=== PATIENT | female | born 1930 | race Two or more races ===

== ENCOUNTER → 2017-06-04 | Outpatient (CLI) | payer MEDICARE, OTHER ==
[2017-06-04 12:49] LABS: COLOR,URINE YELLOW
[2017-06-04 12:50] LABS: BACTERIA,URINE 0 /HPF (0-FEW); BILIRUBIN,URINE NEG (NEG); CLARITY,URINE CLOUDY; GLUCOSE,URINE NEG (NEG); NITRITE,URINE NEG (NEG); RBC,URINE 0 /HPF (0-2); SQUAMOUS EPITHELIAL CELL,UR FEW /LPF; UROBILINOGEN,URINE 0.2 mg/dL (0.2 mg/dL); WBC,URINE OCC /HPF (0-4)
[2017-06-04 12:51] LABS: HYALINE CASTS, URINE FEW /HPF
== END | disposition home or self-care (01) ==
LOC: SPEC 12:30
PROVIDERS: ATTEND Internal Medicine
DX: R32 Unspecified urinary incontinence (principal)
CPT/HCPCS: 81001

== ENCOUNTER → 2017-06-06 | Outpatient (CLI) | payer MEDICARE, OTHER ==
[2017-06-06 10:05] LABS: CALCIUM 9.6 mg/dL (8.5-10.1); CREATININE 1.1 mg/dL (0.6-1.0); POTASSIUM 5.1 mmol/L (3.5-5.1)
[2017-06-06 10:06] LABS: GFR 46.9
== END | disposition home or self-care (01) ==
LOC: SPEC 09:40
PROVIDERS: ATTEND Internal Medicine
DX: E87.5 Hyperkalemia (principal)
CPT/HCPCS: 36415; 80048

== ENCOUNTER 2017-06-13 10:05 | Inpatient (IN) | payer MEDICARE, OTHER ==
[2017-06-13] VITALS (10 sets, daily range): BP systolic 98–142; BP diastolic 40–73
[~2017-06-13] VITALS: Ht 165.1 cm; Wt 98.9 kg
--- NOTE | 2017-06-13 10:27 | PHYS DOC ---
Adult General Chief Complaint Chief Complaint: LOWER EXTREMITY EDEMA HPI HPI Patient is a 87 year old F who presents with increased swelling to the lower extremity. Patient has history of CHF and water retention and her Lasix was recently upped however the patient does not like to increase dosage because it makes her go to the bathroom too much. Therefore the patient has not been taking her Lasix as prescribed and has been retaining more fluid. The group home called EMS for further evaluation and management. The facility is also seeing her heart rate decreased which is in the 40s. In the emergency room the patient has no complaints. Patient denies any shortness of breath. Patient does note that her legs are swollen more than normal. Patient denies any chest pain. Patient denies any nausea/vomiting/diarrhea. Patient has no other complaints. Review of Systems Review of Systems GEN: Denies fevers, chills, sweats HEENT: Denies blurred vision, sore throat CV: Denies chest pain RESP: Denies shortness of air, cough GI: Denies n/v/d NEURO: Denies confusion, dizziness MSK: Lower extremity swelling All other systems were reviewed and found to be within normal limits, except as documented in this note. Physical Exam Physical Exam GEN.: No apparent distress. Alert and oriented. HEENT: Head is normocephalic, atraumatic NECK: Supple. LUNGS: Decreased breath sounds at the bases bilaterally HEART: Bradycardia, irregular irregular, S1, S2 present. Peripheral pulses intact ABDOMEN: Soft, nontender. Positive bowel sounds. EXTREMITIES: Without any cyanosis. +2 pitting edema to lower extremity bilaterally NEUROLOGIC: Normal speech, normal tone PSYCHIATRIC: Normal affect, normal mood. SKIN: No ulcerations Current Patient Data Vital Signs Laboratory Tests Test 06/13/17 10:31 White Blood Count 4.9 x10^3/uL Red Blood Count 3.86 x10^6/uL Hemoglobin 9.6 g/dL Hematocrit 30.9 % Mean Corpuscular Volume 80 fL Mean Corpuscular Hemoglobin 25 pg Mean Corpuscular Hemoglobin Concent 31 g/dL Red Cell Distribution Width 16.8 % Platelet Count 213 x10^3/uL Neutrophils (%) (Auto) 66 % Lymphocytes (%) (Auto) 16 % Monocytes (%) (Auto) 11 % Eosinophils (%) (Auto) 5 % Basophils (%) (Auto) 1 % Neutrophils # (Auto) 3.3 x10^3uL Lymphocytes # (Auto) 0.8 x10^3/uL Monocytes # (Auto) 0.5 x10^3/uL Eosinophils # (Auto) 0.3 x10^3/uL Basophils # (Auto) 0.0 x10^3/uL Sodium Level 141 mmol/L Potassium Level 5.1 mmol/L Chloride Level 108 mmol/L Carbon Dioxide Level 30 mmol/L Anion Gap 3 Blood Urea Nitrogen 52 mg/dL Creatinine 1.2 mg/dL Estimated GFR (Cockcroft-Gault) 42.4 BUN/Creatinine Ratio 43 Glucose Level 116 mg/dL Calcium Level 9.8 mg/dL Total Bilirubin 0.3 mg/dL Aspartate Amino Transf (AST/SGOT) 19 U/L Alanine Aminotransferase (ALT/SGPT) 19 U/L Alkaline Phosphatase 112 U/L Troponin I Quantitative 0.063 ng/mL PA-Dun-V-Type Natriuretic Peptide 2438 pg/mL Total Protein 6.8 g/dL Albumin 2.7 g/dL Albumin/Globulin Ratio 0.7 Current Medications Medications (Trade) Dose Ordered Sig/Kelechi Route PRN Reason Start Time Stop Time Status Last Admin Dose Admin Aspirin (Children'S Aspirin) 81 mg STK-MED ONCE .ROUTE 06/13/17 11:07 06/13/17 11:08 DC Aspirin (Children'S Aspirin) 324 mg 1X ONCE PO 06/13/17 11:30 06/13/17 11:31 DC Ondansetron HCl (Zofran) 4 mg PRN Q4HRS PRN IV NAUSEA/VOMITING 06/13/17 11:30 06/14/17 11:29 Morphine Sulfate (Morphine 2mg Syringe) 2 mg PRN Q2HR PRN IV PAIN 06/13/17 11:30 06/14/17 11:29 Acetaminophen (Tylenol) 650 mg PRN Q4HRS PRN PO FEVER 06/13/17 11:30 06/14/17 11:29 EKG EKG 1053: EKG shows an A. fib with a heart rate of 41 no STEMI[] Radiology/Procedures Radiology/Procedures Chest x-ray shows vascular congestion with a small bilateral pleural effusions[] Course & Med Decision Making Course & Med Decision Making Pertinent Labs and Imaging studies reviewed. (See chart for details) ED course: Patient was seen and examined emergency room cardiac workup was ordered along with a BNP 1110: Updated patient and family at bedside on lab results and plan to admit to the hospital for further evaluation and workup. 1120: Discussed CC/HP/PMH with Dr. Agustin and recommends admit [] MDM: After reviewing the chart, CC/HPI/PMH, physical exam, [lab results], [ radiological results], I believe the patient is having an acute CHF exacerbation along with new-onset of A. fib with bradycardia. Patient has elevated troponin however I do not believe the patient having a STEMI and believe the elevated troponin is probably related to the CHF exacerbation and A. fib. Patient is a DNR. Patient will be given 80 of Lasix in the emergency room and transferred to the ICU. Critical care time was 35 minutes exclusive of procedures.[] Dragon Disclaimer Dragon Disclaimer This electronic medical record was generated, in whole or in part, using a voice recognition dictation system. Departure Departure: Referrals: RAMO MARES MD (PCP) VIVIAN FERNANDEZ DO Jun 13, 2017 10:27
[2017-06-13 10:42] LABS: BASO % 1 % (0-3); EOS # 0.3 x10^3/uL (0.0-0.7); EOS % 5 % (0-3); HEMATOCRIT 30.9 % (36.0-47.0); HEMOGLOBIN 9.6 g/dL (12.0-15.5); LYMPH # 0.8 x10^3/uL (1.0-4.8); LYMPH % 16 % (24-48); MEAN CORPUSCULAR HEMOGLOBIN 25 pg (25-35); MEAN CORPUSCULAR HGB CONC 31 g/dL (31-37); MEAN CORPUSCULAR VOLUME 80 fL (79-100); MONO # 0.5 x10^3/uL (0.0-1.1); MONO % 11 % (0-9); NEUT # 3.3 x10^3uL (1.8-7.7); NEUT % 66 % (31-73); PLATELET COUNT 213 x10^3/uL (140-400); RED BLOOD COUNT 3.86 x10^6/uL (3.50-5.40); RED CELL DISTRIBUTION WIDTH 16.8 % (11.5-14.5); WHITE BLOOD COUNT 4.9 x10^3/uL (4.0-11.0)
--- NOTE | 2017-06-13 10:49 | RAD ---
Indication: Short of air. Technique: AP upright portable chest radiograph was obtained. Comparison is from August 25, 2005. Findings: The heart is upper limits of normal in size. Pulmonary vasculature is mildly cephalized. There is minimal left basilar atelectasis and/or infiltrate. There may be a small left and minimal right pleural effusion. There are advanced degenerative changes in the left shoulder. There is dextrocurvature in the thoracic spine. Leads overlie the patient. Impression: 1. Vascular congestion suspected. 2. Small left and minimal right pleural effusion. 3. Minimal left basilar atelectasis and/ or infiltrate.
--- NOTE | 2017-06-13 10:59 | EKG ---
[address] [address] Test Date: 2017-06-13 Test Time: 10:50:58 Pat Name: SHON SYED Department: Room: Gender: F [employer]iding Instructor: LISA : [id number] Requested By: VIVIAN FERNANDEZ Order Number: [id number] Reading MD: Hernan Chacon MD Measurements Intervals [place] Rate: 41 P: NE: QRS: 27 QRSD: 136 T: 0 QT: 434 QTc: 362 Interpretive Statements [facility] Electronically Signed On 06-13-2017 11:01:12 [employer]PTWIST SPINNER by Hernan Chacon MD
[2017-06-13 11:03] LABS: ALBUMIN 2.7 g/dL (3.4-5.0); ALBUMIN/GLOBULIN RATIO 0.7 (1.0-1.7); CALCIUM 9.8 mg/dL (8.5-10.1); CREATININE 1.2 mg/dL (0.6-1.0); GFR 42.4; POTASSIUM 5.1 mmol/L (3.5-5.1); TOTAL BILIRUBIN 0.3 mg/dL (0.2-1.0); TOTAL PROTEIN 6.8 g/dL (6.4-8.2)
[2017-06-13] MEDS ORDERED: ASPIRIN 81 MG TAB.CHEW ONE (11:07)
[2017-06-13] MEDS ORDERED: MORPHINE SULFATE 2 MG/ML DISP.SYRIN. IV PRN (11:30)
[2017-06-13] MEDS ORDERED: ONDANSETRON PF 4 MG/2 ML VIAL. IV PRN (11:30)
[2017-06-13] MEDS ORDERED: ACETAMINOPHEN 325 MG TABLET PO PRN (11:30)
[2017-06-13] MEDS ORDERED: ASPIRIN 81 MG TAB.CHEW PO ONE (11:30)
[2017-06-13] MEDS ORDERED: FUROSEMIDE 40 MG/4 ML VIAL IVP ONE (12:10)
[2017-06-13 12:31] LABS: BILIRUBIN,URINE NEG (NEG); CLARITY,URINE CLOUDY; COLOR,URINE YELLOW; GLUCOSE,URINE NEG (NEG); NITRITE,URINE POS (NEG); UROBILINOGEN,URINE 0.2 mg/dL (0.2 mg/dL)
[2017-06-13 12:32] LABS: BACTERIA,URINE MANY /HPF (0-FEW); GRANULAR CASTS,URINE OCC /HPF; HYALINE CASTS, URINE MOD /HPF; SQUAMOUS EPITHELIAL CELL,UR FEW /LPF
[2017-06-13] MEDS ORDERED: FUROSEMIDE 40 MG TABLET PO SCH (14:00)
[2017-06-13] MEDS: amLODIPine BESYLATE 10 MG TABLET PO SCH (14:00)
--- NOTE | 2017-06-13 14:39 | CONS ---
DATE OF CONSULTATION: 06/13/2017 REASON FOR CONSULTATION: Bradycardia and heart failure. HISTORY OF PRESENT ILLNESS: The patient's history is fairly limited due to some somnolence, but it appears that based on chart review and her presentation, she was stent to the ER due to a slow heart rate and worsening lower extremity edema and upper extremity edema. She currently denies any symptoms, but feels fairly sleepy. Upon arrival to the ER, she was noted to have vascular congestion and an elevated BNP and therefore she was diuresed with Lasix 80 mg IV push. She has been admitted to the hospital for further evaluation as her EKG revealed atrial fibrillation with slow ventricular response as well. This history of atrial fibrillation is unknown. PAST MEDICAL HISTORY: 1. Hypertension. 2. Presumable diastolic heart failure with bilateral lower extremity edema. 3. Chronic debility. FAMILY HISTORY: Noncontributory. 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 ALLERGIES: CODEINE. MEDICATIONS: Cardiovascular medications at home: 1. Carvedilol 3.125 mg b.i.d. 2. Norvasc 5 mg daily. REVIEW OF SYSTEMS: Negative for 10 out of 14 systems reviewed, unless otherwise mentioned above in HPI. PHYSICAL EXAMINATION: VITAL SIGNS: Afebrile, 52, 15, 142/72, 100% on 2 liters nasal canula. GENERAL: She is alert and oriented to person and place, but not to time. HEAD AND NECK: Unremarkable. CARDIAC: Irregularly irregular and bradycardic with 4/6 systolic murmurs at the tricuspid and aortic regions. LUNGS: Decreased breath sounds bilaterally. ABDOMEN: Obese with mild pitting edema. NEUROLOGIC: No focal deficits, but she is frail and debilitated. EXTREMITIES: Bilateral 2+ pitting edema of the upper and lower extremities. She has chronic venous stasis changes and class C6 wounds. MUSCULOSKELETAL: No obvious trauma. DIAGNOSTIC STUDIES: Hemoglobin 9.6, platelets 213, creatinine 1.2, potassium 5.1, troponin 0.063. BNP 2438. Urinalysis is notable for positive nitrites and 11-20 wbc's. Chest x-ray reveals bilateral vascular congestion. EKG demonstrates atrial fibrillation with slow ventricular response. IMPRESSION: 1. Atrial fibrillation with slow ventricular response, duration unknown. 2. Presumed diastolic heart failure, echo pending, acute on chronic. 3. Possible urinary tract infection. 4. Anemia of chronic disease. 5. Hypertension. RECOMMENDATIONS: 1. Initiate amlodipine 10 mg daily for her blood pressure. 2. Continue Lasix 40 mg IV daily starting tomorrow. The patient already received 80 mg IV Lasix today. Monitor urine output and strict I's and O's and low salt diet. 3. Obtain echocardiogram. The patient appears to be DNR and we will continue conservative measures at this time. No acute indication for pacemaker. Supportive care. Thank you for this consultation. EKATERINA WEEMS MD DR: ELLYN/lucy JOB#: [id number] / [id number]
[2017-06-13] MEDS ORDERED: MULT-658 PO (16:30)
[2017-06-13] MEDS ORDERED: PSYL3.4P PO (16:30)
[2017-06-13] MEDS ORDERED: CALC500T PO (16:30)
[2017-06-13] MEDS ORDERED: MENT1ADH39 TP (16:30)
[2017-06-13] MEDS ORDERED: ERGO500027 PO (16:40)
[2017-06-13] MEDS ORDERED: CHOL500016 PO (16:40)
[2017-06-13] MEDS ORDERED: FURO-68 PO (16:40)
[2017-06-13] MEDS ORDERED: ACET500T68 PO (16:40)
[2017-06-13] MEDS ORDERED: CARV3.12 PO (16:40)
[2017-06-13] MEDS ORDERED: TRAM50TA PO (16:40)
[2017-06-13] MEDS ORDERED: ASPI-630 PO (16:40)
[2017-06-13] MEDS ORDERED: DOCU-109 PO (16:40)
[2017-06-13] MEDS ORDERED: GLUC1CAP39 PO (16:40)
[2017-06-13] MEDS ORDERED: TOLT4CAP PO (16:40)
[2017-06-13] MEDS ORDERED: TRIA15CR50 TP (16:40)
[2017-06-13] MEDS ORDERED: RANI150T6 PO (16:40)
[2017-06-13] MEDS ORDERED: AMLO5TAB2 PO (16:40)
[2017-06-13] MEDS ORDERED: GUAI600T47 PO (16:49)
[2017-06-13] MEDS ORDERED: SENN-79 PO (16:49)
[2017-06-13] MEDS ORDERED: CLOT15CR3 TP (16:49)
[2017-06-13] MEDS ORDERED: ERGOCALCIFEROL 50000 UNIT PO SCH (17:00)
[2017-06-13] MEDS ORDERED: TRIAMCINOLONE ACETONIDE 0.5% TOPICAL CREAM 15GM TUBE. TP PRN (17:00)
[2017-06-13] MEDS ORDERED: METHYL SALICYLATE/MENTHOL TOPICAL OINTMENT 29GM TUBE. TP PRN (17:15)
--- NOTE | 2017-06-13 18:15 | HP ---
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 The senior care also noticed some heart rate in the 40s. The patient herself is not sure why she had to be admitted. PAST MEDICAL HISTORY: Lower extremity ulcers, chronic venous insufficiency, pruritus, lymphedema, long-term use of aspirin, osteoarthritis, fall risk, hypertension, dysphagia, and has a history of esophageal obstruction. MEDICATIONS: Reviewed and are available on the MAR. REVIEW OF SYSTEMS: The patient states I am cold, otherwise no specific complaints. OBJECTIVE: VITAL SIGNS: Blood pressure 142/72, respirations 15, pulse 52, pulse ox 100% on 2 liters. Height 61 inches, weight 240.3 pounds. HEENT: The patient's color is pale. Her tongue is slightly dry. NECK: Supple. LUNGS: With a few crackles in the bases. CARDIOVASCULAR: Rate is slow rhythm, irregular rhythm. ABDOMEN: Soft, swollen. EXTREMITIES: With deformed feet, barely palpable pulses, skin changes of venous insufficiency, and some edema. Remainder of her extremities, she has massive anasarca of the upper extremities, abdomen, and upper legs. LABORATORY DATA: Hemoglobin 9.6, hematocrit 30.9. Chemistry: BUN is 52, creatinine is 1.2. Her troponin is slightly elevated at 0.063. BNP 2438. Albumin 2.7. ASSESSMENT: 1. Massive anasarca. 2. Atrial fibrillation with slow ventricular response. 3. Normochromic normocytic anemia. 4. History of hypertension. 5. Chronic venous insufficiency. 6. Elevated troponin. 7. Elevated BNP with vascular congestion. 8. Congestive heart failure. PLAN: IV Lasix, strict I and O, daily weight, echocardiogram. MILAN REED DO DR: ASAD/lucy JOB#: [id number] / [id number]
[2017-06-13] MEDS: CALCIUM CARBONATE 500 MG TABLET PO SCH (21:52)
[2017-06-13] MEDS: OXYBUTYNIN CHLORIDE 5 MG TABLET PO SCH (21:52)
[2017-06-13] MEDS: SENNOSIDES 8.6 MG TABLET PO SCH (21:52)
[2017-06-13] MEDS: FAMOTIDINE 20 MG TABLET PO SCH (21:53)
[2017-06-13] MEDS: DOCUSATE SODIUM 100 MG CAPSULE PO SCH (21:53)
[2017-06-13] MEDS: CLOTRIMAZOLE/BETAMETH 1%-0.05% TOPICAL CREAM 15GM TUBE. TP SCH (21:53)
[2017-06-13] MEDS: ACETAMINOPHEN 500 MG TABLET PO SCH (21:53)
[2017-06-13] MEDS: GLUCOSAMINE/CHOND 500/400MG CAPSULE PO SCH (21:55)
[2017-06-14] VITALS (15 sets, daily range): BP systolic 105–159; BP diastolic 47–81
[2017-06-14] MEDS: FUROSEMIDE 40 MG/4 ML VIAL IVP SCH (06:04)
[2017-06-14 06:19] LABS: BASO % 1 % (0-3); EOS # 0.4 x10^3/uL (0.0-0.7); EOS % 7 % (0-3); HEMATOCRIT 30.9 % (36.0-47.0); HEMOGLOBIN 9.6 g/dL (12.0-15.5); LYMPH # 0.9 x10^3/uL (1.0-4.8); LYMPH % 16 % (24-48); MEAN CORPUSCULAR HEMOGLOBIN 25 pg (25-35); MEAN CORPUSCULAR HGB CONC 31 g/dL (31-37); MEAN CORPUSCULAR VOLUME 80 fL (79-100); MONO # 0.7 x10^3/uL (0.0-1.1); MONO % 12 % (0-9); NEUT # 3.5 x10^3uL (1.8-7.7); NEUT % 64 % (31-73); PLATELET COUNT 200 x10^3/uL (140-400); RED BLOOD COUNT 3.86 x10^6/uL (3.50-5.40); RED CELL DISTRIBUTION WIDTH 16.4 % (11.5-14.5); WHITE BLOOD COUNT 5.4 x10^3/uL (4.0-11.0)
[2017-06-14 06:25] LABS: ALBUMIN 2.6 g/dL (3.4-5.0); ALBUMIN/GLOBULIN RATIO 0.7 (1.0-1.7); CALCIUM 9.6 mg/dL (8.5-10.1); GFR 52.3; MAGNESIUM 1.7 mg/dL (1.8-2.4); POTASSIUM 4.6 mmol/L (3.5-5.1); TOTAL BILIRUBIN 0.4 mg/dL (0.2-1.0); TOTAL PROTEIN 6.2 g/dL (6.4-8.2)
[2017-06-14] MEDS: MULTIVITAMIN I-VITE TABLET. PO SCH (08:28)
[2017-06-14] MEDS: GLUCOSAMINE/CHOND 500/400MG CAPSULE PO SCH ×2 (08:28→21:47)
[2017-06-14] MEDS: ACETAMINOPHEN 500 MG TABLET PO SCH ×3 (08:28→21:47)
[2017-06-14] MEDS: MAGNESIUM OXIDE 400 MG TABLET PO SCH (08:28)
[2017-06-14] MEDS: CALCIUM CARBONATE 500 MG TABLET PO SCH ×3 (08:28→21:47)
[2017-06-14] MEDS: OXYBUTYNIN CHLORIDE 5 MG TABLET PO SCH ×3 (08:28→21:46)
[2017-06-14] MEDS: amLODIPine BESYLATE 10 MG TABLET PO SCH (08:29)
[2017-06-14] MEDS ORDERED: PSYLLIUM SEED (WITH SUGAR) PACKET. PO PRN (09:00)
--- NOTE | 2017-06-14 09:34 | PDOC ---
PROGRESS NOTES Assessment 1. Atrial fibrillation with slow ventricular response, duration unknown. beta blockers discontinued. Rate improving. [id number] =4. Would warrant anticoagulation for stroke prophylaxis. 2. heart failure, acute on chronic. Echo pending. good output with lasix. 3. Hypertension. - controlled with amlodipine. 4. UTI/cellulitis - mgmt per PCP Problems: Subjective no chest pain, mild dyspnea, no palpitations Objective Vital Signs Date Time Temp Pulse Resp B/P (MAP) Pulse Ox O2 Delivery O2 Flow Rate FiO2 06/14/17 09:00 61 20 108/51 (70) 96 Nasal Cannula 2.0 06/14/17 06:50 98.1 Intake and Output 06/14/17 07:00 Intake Total 314 ml Output Total 3100 ml Balance -2786 ml Intake Oral 314 ml Output Urine Total 3100 ml Abdomen: Normal bowel sounds, Soft Heart: Other (irregular rate and rhythm, + murmur 3/6) Extremities: Other (+edema, bilateral lower extremity erythema) General: Alert, Oriented X3, Cooperative Lungs: Other (basilar crackles) Neuro: Normal speech Psych/Mental Status: Mental status NL, Mood NL Review of Relevant I have reviewed the following items janet (where applicable) has been applied. Labs Laboratory Tests Test 06/13/17 10:31 06/13/17 12:00 06/13/17 13:30 06/13/17 17:15 White Blood Count 4.9 x10^3/uL (4.0-11.0) Red Blood Count 3.86 x10^6/uL (3.50-5.40) Hemoglobin 9.6 g/dL (12.0-15.5) Hematocrit 30.9 % (36.0-47.0) Mean Corpuscular Volume 80 fL (79-100) Mean Corpuscular Hemoglobin 25 pg (25-35) Mean Corpuscular Hemoglobin Concent 31 g/dL (31-37) Red Cell Distribution Width 16.8 % (11.5-14.5) Platelet Count 213 x10^3/uL (140-400) Neutrophils (%) (Auto) 66 % (31-73) Lymphocytes (%) (Auto) 16 % (24-48) Monocytes (%) (Auto) 11 % (0-9) Eosinophils (%) (Auto) 5 % (0-3) Basophils (%) (Auto) 1 % (0-3) Neutrophils # (Auto) 3.3 x10^3uL (1.8-7.7) Lymphocytes # (Auto) 0.8 x10^3/uL (1.0-4.8) Monocytes # (Auto) 0.5 x10^3/uL (0.0-1.1) Eosinophils # (Auto) 0.3 x10^3/uL (0.0-0.7) Basophils # (Auto) 0.0 x10^3/uL (0.0-0.2) Sodium Level 141 mmol/L (136-145) Potassium Level 5.1 mmol/L (3.5-5.1) Chloride Level 108 mmol/L (98-107) Carbon Dioxide Level 30 mmol/L (21-32) Anion Gap 3 (6-14) Blood Urea Nitrogen 52 mg/dL (7-20) Creatinine 1.2 mg/dL (0.6-1.0) Estimated GFR (Cockcroft-Gault) 42.4 BUN/Creatinine Ratio 43 (6-20) Glucose Level 116 mg/dL (70-99) Calcium Level 9.8 mg/dL (8.5-10.1) Total Bilirubin 0.3 mg/dL (0.2-1.0) Aspartate Amino Transf (AST/SGOT) 19 U/L (15-37) Alanine Aminotransferase (ALT/SGPT) 19 U/L (14-59) Alkaline Phosphatase 112 U/L (46-116) Troponin I Quantitative 0.063 ng/mL (0-0.055) 0.067 ng/mL (0-0.055) WH-Vyw-E-Type Natriuretic Peptide 2438 pg/mL (0-449) Total Protein 6.8 g/dL (6.4-8.2) Albumin 2.7 g/dL (3.4-5.0) Albumin/Globulin Ratio 0.7 (1.0-1.7) Urine Collection Type U cath Urine Color Yellow Urine Clarity Cloudy Urine pH 5.0 Urine Specific [place] 1.020 Urine Protein 30 mg/dl (NEG-TRACE) Urine Glucose (UA) Neg mg/dL (NEG) Urine Ketones (Stick) Neg mg/dL (NEG) Urine Blood Small (NEG) Urine Nitrite Pos (NEG) Urine Bilirubin Neg (NEG) Urine Urobilinogen Dipstick 0.2 mg/dL (0.2 mg/dL) Urine Leukocyte Esterase Neg (NEG) Urine RBC 3-5 /HPF (0-2) Urine WBC 11-20 /HPF (0-4) Urine Squamous Epithelial Cells Few /LPF Urine Bacteria Many /HPF (0-FEW) Urine Hyaline Casts Mod /HPF Urine Granular Casts Occ /HPF Urine Mucus Slight /LPF Nasal Screen MRSA (PCR) Positive (Negative) Test 06/13/17 22:50 06/14/17 06:01 Troponin I Quantitative 0.065 ng/mL (0-0.055) White Blood Count 5.4 x10^3/uL (4.0-11.0) Red Blood Count 3.86 x10^6/uL (3.50-5.40) Hemoglobin 9.6 g/dL (12.0-15.5) Hematocrit 30.9 % (36.0-47.0) Mean Corpuscular Volume 80 fL (79-100) Mean Corpuscular Hemoglobin 25 pg (25-35) Mean Corpuscular Hemoglobin Concent 31 g/dL (31-37) Red Cell Distribution Width 16.4 % (11.5-14.5) Platelet Count 200 x10^3/uL (140-400) Neutrophils (%) (Auto) 64 % (31-73) Lymphocytes (%) (Auto) 16 % (24-48) Monocytes (%) (Auto) 12 % (0-9) Eosinophils (%) (Auto) 7 % (0-3) Basophils (%) (Auto) 1 % (0-3) Neutrophils # (Auto) 3.5 x10^3uL (1.8-7.7) Lymphocytes # (Auto) 0.9 x10^3/uL (1.0-4.8) Monocytes # (Auto) 0.7 x10^3/uL (0.0-1.1) Eosinophils # (Auto) 0.4 x10^3/uL (0.0-0.7) Basophils # (Auto) 0.0 x10^3/uL (0.0-0.2) Sodium Level 142 mmol/L (136-145) Potassium Level 4.6 mmol/L (3.5-5.1) Chloride Level 106 mmol/L (98-107) Carbon Dioxide Level 29 mmol/L (21-32) Anion Gap 7 (6-14) Blood Urea Nitrogen 51 mg/dL (7-20) Creatinine 1.0 mg/dL (0.6-1.0) Estimated GFR (Cockcroft-Gault) 52.3 BUN/Creatinine Ratio 51 (6-20) Glucose Level 96 mg/dL (70-99) Calcium Level 9.6 mg/dL (8.5-10.1) Magnesium Level 1.7 mg/dL (1.8-2.4) Total Bilirubin 0.4 mg/dL (0.2-1.0) Aspartate Amino Transf (AST/SGOT) 17 U/L (15-37) Alanine Aminotransferase (ALT/SGPT) 18 U/L (14-59) Alkaline Phosphatase 104 U/L (46-116) Total Protein 6.2 g/dL (6.4-8.2) Albumin 2.6 g/dL (3.4-5.0) Albumin/Globulin Ratio 0.7 (1.0-1.7) Medications Current Medications Aspirin (Children'S Aspirin) 81 mg STK-MED ONCE .ROUTE ; Start 06/13/17 at 11: 07; Stop 06/13/17 at 11:08; Status DC Aspirin (Children'S Aspirin) 324 mg 1X ONCE PO ; Start 06/13/17 at 11:30; Stop 06/13/17 at 11:31; Status DC Ondansetron HCl (Zofran) 4 mg PRN Q4HRS PRN IV NAUSEA/VOMITING; Start at 11:30; Stop 06/14/17 at 11:29 Morphine Sulfate (Morphine 2mg Syringe) 2 mg PRN Q2HR PRN IV PAIN; Start 06/13 at 11:30; Stop 06/14/17 at 11:29 Acetaminophen (Tylenol) 650 mg PRN Q4HRS PRN PO FEVER; Start 06/13/17 at 11:30 ; Stop 06/14/17 at 11:29 Furosemide (Lasix) 80 mg 1X ONCE IVP Last administered on 06/13/17t 12:08; Start 06/13/17 at 12:10; Stop 06/13/17 at 12:11; Status DC Amlodipine Besylate (Norvasc) 10 mg DAILY PO Last administered on 06/14/17 08 :29; Start 06/13/17 at 14:00 Furosemide (Lasix) 40 mg DAILY PO ; Start 06/13/17 at 14:00; Stop 06/13/17 at 14:10; Status DC Furosemide (Lasix) 40 mg DAILY07 IVP Last administered on 06/14/17 06:04; Start 06/14/17 at 07:00 Acetaminophen (Tylenol) 1,000 mg TID PO Last administered on 06/14/17 08:28; Start 06/13/17 at 21:00 Aspirin (Children'S Aspirin) 81 mg QHS PO ; Start 06/14/17 at 21:00 Calcium Carbonate/ Glycine (Oscal) 500 mg TID PO Last administered on 08:28; Start 06/13/17 at 21:00 Betamethasone/ Clotrimazole (Lotrisone) 1 fred QHS TP Last administered on 06/13 21:53; Start 06/13/17 at 21:00 Docusate Sodium (Colace) 200 mg QHS PO Last administered on 06/13/17 21:53; Start 06/13/17 at 21:00 Sennosides (Senna) 8.6 mg QHS PO Last administered on 06/13/17 21:52; Start 06/13/17 at 21:00 Triamcinolone Acetonide (Aristocort) 1 fred PRN DAILY PRN TP PRURITUS; Start at 17:00 Non-Formulary Medication 50,000 unit QMONTHLY PO ; Start 06/13/17 at 17:00; Stop 06/13/17 at 17:15; Status DC Glucosamine/ Chondroitin (Glucosamine-Chondroitin 500/400mg) 1 cap BID PO Last administered on 06/14/17 08:28; Start 06/13/17 at 21:00 Multi-Ingredient Ointment (Analgesic [place]) 1 fred PRN QID PRN TP PAIN; Start at 17:15 Multivitamins/ Minerals (I-Mirian) 1 tab DAILY PO Last administered on 08:28; Start 06/14/17 at 09:00 Psyllium Hydrophilic Mucilloid (Metamucil) 1 pkt PRN DAILY PRN PO CONSTIPATION ; Start 06/14/17 at 09:00 Famotidine (Pepcid) 20 mg QHS PO Last administered on 06/13/17 21:53; Start 06/13/17 at 21:00 Oxybutynin Chloride (Ditropan) 5 mg [id number] PO Last administered on 06/14/17 08:28; Start 06/13/17 at 21:00 Vitamin D (Vitamin D3) 50,000 unit QMONTH PO ; Start 07/01/17 at 09:00 Magnesium Oxide (Magnesium Oxide) 400 mg DAILY PO Last administered on 08:28; Start 06/14/17 at 09:00 Active Scripts Active Reported Senna (Sennosides) 8.6 Mg Tablet 8.6 Mg PO QHS Lotrisone Cream (Clotrimazole/Betamethasone Dip) 15 Gm Cream..g. 1 Fred TP QHS Mucinex (Guaifenesin) 600 Mg Tablet.er 600 Mg PO BID Zantac (Ranitidine Hcl) 150 Mg Tablet 150 Mg PO QHS Tramadol Hcl (Tramadol HCl) 50 Mg Tablet 50 Mg PO QID PRN Coreg (Carvedilol) 3.125 Mg Tablet 3.125 Mg PO BIDWMEALS Vitamin D2 (Ergocalciferol (Vitamin D2)) 50,000 Unit Capsule 50,000 Unit PO QMONTHLY Vitamin D3 (Cholecalciferol (Vitamin D3)) 5,000 Unit Tablet 5,000 Unit PO Triamcinolone Acetonide 15 Gm Cream..g. 1 Fred TP PRN PRN Colace (Docusate Sodium) 100 Mg Capsule 200 Mg PO QHS Aspirin 81 Mg Tab.chew 81 Mg PO QHS Glucosamine-Chondroitin Cap (Glucosa [place]eves 2KCL/Chondroitin Esteves) 1 Each Capsule 1 Tab PO BID Acetaminophen 500 Mg Tablet 1,000 Mg PO TID Amlodipine Besylate 5 Mg Tablet 5 Mg PO DAILY Lasix (Furosemide) 40 Mg Tablet 40 Mg PO DAILY Detrol La (Tolterodine Tartrate) 4 Mg Cap.er.24h 4 Mg PO DAILY Metamucil Fiber Singles Packet (Psyllium Husk/Aspartame) 3.4 Gm Powd.pack 3.4 Gm PO PRN DAILY PRN Calcium Carbonate 500 Mg Tablet 500 Mg PO TID Centrum Silver Tablet (Multivits-Min/Fa/Lycopene/Lut) 1 Each Tablet 1 Tab PO DAILY Icy Hot (Menthol) 1 Each Adh..patch 1 Fred TP PRN PRN Vitals/I & O Vital Sign - Last 24 Hours 06/13/17 06/13/17 06/13/17 06/13/17 10:30 11:00 11:30 13:10 Temp 97.9 98.1 Pulse 58 56 55 52 Resp 16 16 18 15 B/P (MAP) 165/59 (94) 157/75 (102) 142/72 (95) Pulse Ox 96 97 97 100 O2 Delivery Nasal Cannula Nasal Cannula Nasal Cannula Nasal Cannula O2 Flow Rate 2.0 2.0 06/13/17 06/13/17 06/13/17 06/13/17 13:30 14:00 15:00 16:00 Temp 98.5 Pulse 56 56 56 Resp 12 13 14 B/P (MAP) 133/68 (89) 121/55 (77) 138/72 (94) Pulse Ox 100 100 100 O2 Delivery Nasal Cannula Nasal Cannula Nasal Cannula Nasal Cannula O2 Flow Rate 2.0 2.0 2.0 2.0 06/13/17 06/13/17 06/13/17 06/13/17 16:00 17:00 18:00 19:01 Temp 97.0 Pulse 64 63 64 Resp 21 22 16 B/P (MAP) 129/68 (88) 106/51 (69) 105/46 (65) Pulse Ox 100 94 98 O2 Delivery Nasal Cannula Nasal Cannula Nasal Cannula Nasal Cannula O2 Flow Rate 2.0 2.0 2.0 2.0 06/13/17 06/13/17 06/13/17 06/13/17 20:00 21:02 22:15 23:01 Pulse 53 47 56 Resp 14 18 13 B/P (MAP) 98/40 (59) 134/73 (93) 112/45 (67) Pulse Ox 98 96 100 O2 Delivery Nasal Cannula Nasal Cannula Nasal Cannula Nasal Cannula O2 Flow Rate 2.0 2.0 2.0 2.0 06/14/17 06/14/17 06/14/17 06/14/17 00:00 01:46 03:01 04:00 Pulse 62 52 Resp 30 16 B/P (MAP) 105/53 (70) 105/56 (72) Pulse Ox 98 99 O2 Delivery Nasal Cannula Nasal Cannula Nasal Cannula Nasal Cannula O2 Flow Rate 2.0 2.0 2.0 2.0 06/14/17 06/14/17 06/14/17 06/14/17 04:01 05:01 06:00 06:50 Temp 98.1 Pulse 64 61 64 Resp 28 22 18 B/P (MAP) 127/47 (73) 123/62 (82) 136/81 (99) Pulse Ox 98 95 96 O2 Delivery Nasal Cannula Nasal Cannula Nasal Cannula O2 Flow Rate 2.0 2.0 2.0 06/14/17 06/14/17 06/14/17 08:00 08:29 09:00 Pulse 80 61 Resp 20 B/P (MAP) 108/51 (70) Pulse Ox 96 O2 Delivery Nasal Cannula Nasal Cannula O2 Flow Rate 2.0 2.0 Intake and Output 06/13/17 06/13/17 06/14/17 15:00 23:00 07:00 Intake Total 314 ml 0 ml Output Total 1250 ml 700 ml 1150 ml Balance -1250 ml -386 ml -1150 ml EFRAÍN CORONA APRN Jun 14, 2017 09:34
[2017-06-14] MEDS ORDERED: ENOXAPARIN 30 MG/0.3 ML DISP.SYRIN. SQ SCH (10:00)
[2017-06-14] MEDS: ENOXAPARIN 40 MG/0.4 ML DISP.SYRIN. SQ SCH (10:08)
--- NOTE | 2017-06-14 15:49 | CARD ---
APPROVED REPORT EXAM: Two-dimensional and M-mode echocardiogram with Doppler and color Doppler. Other Information Quality : Average Rhythm : Atrial Flutter INDICATION Peripheral Edema 2D DIMENSIONS Left Atrium(2D)4.3 (1.6-4.0cm)IVSd1.5 (0.7-1.1cm) Aortic Root(2D)2.6 (2.0-3.7cm)LVDd4.8 (3.9-5.9cm) LVOT Diameter2.1 (1.8-2.4cm)PWd1.5 (0.7-1.1cm) LVDs2.8 (2.5-4.0cm)FS (%) 31.8 % SV78.4 mlLVEF(%)62.7 (>50%) Aortic Valve AoV Peak Lion.313.7cm/sAoV VTI65.3cm AO Peak GR.39.4mmHgLVOT Peak Lion.122.7cm/s LVOT VTI 28.11cmAO Mean GR.21mmHg AYESHA (VMAX)1.25jc9PPI (VTI)1.47cm2 AI P 1/2 [id number] Mitral Valve MV [id number] (PHT)4.09cm2 Tricuspid Valve TR P. [id number]/sRAP [id number] TR Peak Gr.[id number] LEFT VENTRICLE The left ventricle is normal size. There is mild to moderate concentric left ventricular hypertrophy. Left ventricle systolic function is normal. The Ejection Fraction is 60-65%. There is normal LV segm ental wall motion. Tissue Doppler imaging reveals moderate left ventricular diastolic dysfunction. Th ere is no ventricular septal defect visualized. RIGHT VENTRICLE The right ventricle is normal size. The right ventricular systolic function is normal. ATRIA The left atrium is mildly dilated. The right atrium is mildly dilated. The interatrial septum is inta ct with no evidence for an atrial septal defect or patent foramen ovale as noted on 2-D or Doppler im aging. AORTIC VALVE The aortic valve is moderately calcified. The aortic valve is trileaflet. Doppler and Color Flow reve aled mild aortic regurgitation. Calculated aortic valve area is 1.4 cm2 with maximum pressure gradien t of 39 mmHg and mean pressure gradient of 21 mmHg consistent with mild to moderate . MITRAL VALVE Mitral annular calcification is mild. The mitral valve leaflets are thickened and calcified. There is no mitral valve stenosis. Doppler and Color Flow revealed mild mitral regurgitation. TRICUSPID VALVE The tricuspid valve is normal in structure. Doppler and Color Flow revealed mild tricuspid regurgitat ion. The PA pressure was estimated at 44 mmHg. There is no tricuspid valve stenosis. PULMONIC VALVE The pulmonic valve is not well visualized. Doppler and Color Flow revealed no pulmonic valvular regur gitation. There is no pulmonic valvular stenosis. GREAT VESSELS The aortic root is normal in size. Pulmonary veins not recorded. The IVC is dilated in size and colla pses >50% with inspiration. PERICARDIAL EFFUSION There is no evidence of significant pericardial effusion. Critical Notification Critical Value: No <Conclusion> Left ventricle systolic function is normal. The Ejection Fraction is 60-65%. There is normal LV segmental wall motion. Calculated aortic valve area is 1.4 cm2 with maximum pressure gradient of 39 mmHg and mean pressure g radient of 21 mmHg consistent with mild to moderate . Doppler and Color Flow revealed mild aortic regurgitation.
[2017-06-14] MEDS: DOCUSATE SODIUM 100 MG CAPSULE PO SCH (21:46)
[2017-06-14] MEDS: FAMOTIDINE 20 MG TABLET PO SCH (21:47)
[2017-06-14] MEDS: CLOTRIMAZOLE/BETAMETH 1%-0.05% TOPICAL CREAM 15GM TUBE. TP SCH (21:47)
[2017-06-14] MEDS: SENNOSIDES 8.6 MG TABLET PO SCH (21:47)
[2017-06-14] MEDS: ASPIRIN 81 MG TAB.CHEW PO SCH (21:47)
[2017-06-15] VITALS (10 sets, daily range): BP systolic 94–148; BP diastolic 43–90
--- NOTE | 2017-06-15 04:03 | PN ---
DATE: 06/14/2017 PROBLEMS: 1. Atrial fibrillation with slow ventricular response, acute on chronic heart failure. 2. Hypertension. 3. Anasarca. 4. Fluid overload. 5. Fall risk. 6. Chronic venous insufficiency of the lower extremities. 7. Elevated BNP with vascular congestion. 8. Normochromic normocytic anemia. 9. Elevated troponin secondary to illness. 10. Hypomagnesemia. SUBJECTIVE: The patient is doing better today. She has had excellent output from the IV Lasix. She is much more alert this morning and was asking about another sister that is in the ICU, but I was unable to give her any information due to HIPAA. OBJECTIVE: VITAL SIGNS: Blood pressure 108/51, pulse 61, respirations 20, pulse ox 96% on 2 liters. Weight this morning is 233.31 pounds, I believe it was over 240 yesterday. GENERAL: Color is better. LUNGS: With a few crackles. HEENT: Tongue was slightly dry. CARDIOVASCULAR: Irregular rhythm and rate and the rate varies with recorded low of 47 and high of 80. ABDOMEN: Soft, nontender. EXTREMITIES: With chronic venous insufficiency and edema. Arms also edematous, but less so and hips edematous, but less so. PLAN: Continue IV Lasix. Replace any electrolyte deficiencies. Creatinine has actually improved to 1.0 and replace her magnesium.. MILAN REED DO DR: ASAD/lucy JOB#: [id number] / [id number]
[2017-06-15 06:18] LABS: BASO % 1 % (0-3); EOS # 0.4 x10^3/uL (0.0-0.7); EOS % 8 % (0-3); HEMATOCRIT 33.3 % (36.0-47.0); HEMOGLOBIN 10.2 g/dL (12.0-15.5); LYMPH % 17 % (24-48); MEAN CORPUSCULAR HEMOGLOBIN 25 pg (25-35); MEAN CORPUSCULAR HGB CONC 31 g/dL (31-37); MEAN CORPUSCULAR VOLUME 80 fL (79-100); MONO # 0.7 x10^3/uL (0.0-1.1); MONO % 12 % (0-9); NEUT # 3.6 x10^3uL (1.8-7.7); NEUT % 62 % (31-73); PLATELET COUNT 191 x10^3/uL (140-400); RED BLOOD COUNT 4.15 x10^6/uL (3.50-5.40); RED CELL DISTRIBUTION WIDTH 16.7 % (11.5-14.5); WHITE BLOOD COUNT 5.8 x10^3/uL (4.0-11.0)
[2017-06-15] MEDS: FUROSEMIDE 40 MG/4 ML VIAL IVP SCH (06:19)
[2017-06-15 06:23] LABS: ALBUMIN 2.5 g/dL (3.4-5.0); ALBUMIN/GLOBULIN RATIO 0.7 (1.0-1.7); CALCIUM 10.1 mg/dL (8.5-10.1); CREATININE 0.9 mg/dL (0.6-1.0); GFR 59.1; MAGNESIUM 1.6 mg/dL (1.8-2.4); POTASSIUM 4.3 mmol/L (3.5-5.1); TOTAL BILIRUBIN 0.4 mg/dL (0.2-1.0); TOTAL PROTEIN 6.1 g/dL (6.4-8.2)
[2017-06-15] MEDS: MULTIVITAMIN I-VITE TABLET. PO SCH (08:42)
[2017-06-15] MEDS: ACETAMINOPHEN 500 MG TABLET PO SCH ×3 (08:42→22:32)
[2017-06-15] MEDS: MAGNESIUM OXIDE 400 MG TABLET PO SCH (08:42)
[2017-06-15] MEDS: ENOXAPARIN 40 MG/0.4 ML DISP.SYRIN. SQ SCH (08:42)
[2017-06-15] MEDS: OXYBUTYNIN CHLORIDE 5 MG TABLET PO SCH ×3 (08:42→22:31)
[2017-06-15] MEDS: CALCIUM CARBONATE 500 MG TABLET PO SCH ×3 (08:43→22:33)
[2017-06-15] MEDS: amLODIPine BESYLATE 10 MG TABLET PO SCH (08:51)
[2017-06-15] MEDS: GLUCOSAMINE/CHOND 500/400MG CAPSULE PO SCH ×2 (09:00→22:32)
--- NOTE | 2017-06-15 15:37 | PDOC ---
PROVIDER NOTE PROVIDER NOTE PROVIDER NOTE CARDIOLOGY FOLLOW UP NOTE: S: Reports fatigue. Denies chest pain. Has dyspnea O: HR 50's, BP 90/50's Gen: Fatigued CVS: Irr irr. LUNGS: Decreased breath sounds bilaterally. ABD: Obese, NT/ND EXT: Bilateral lower ext venous stasis changes. Labs: Cr wnl Hgb stable. Echo reviewed. Impression: 1. Afib with slow ventricular response. 2. acute on chronic diastolic HF 3. Elevated troponin due to demand mediated ischemia 4. Mild HTN 5. Chronic debility Plan: 1. Change lasix to 40mg p.o bid 2. Start eliquis 2.5mg bid 3. Continue abx treatment for her cellulitis/venous insufficiency Supportive care, happy to see her in the office if she wishes to be followed up on an outpt basis. Goals of care discussion through [facility]. THanks. EKATERINA WEEMS MD Jun 15, 2017 15:37
[2017-06-15] MEDS: FUROSEMIDE 40 MG TABLET PO SCH (22:32)
[2017-06-15] MEDS: FAMOTIDINE 20 MG TABLET PO SCH (22:32)
[2017-06-15] MEDS: APIXABAN 2.5 MG TABLET PO SCH (22:32)
[2017-06-15] MEDS: DOCUSATE SODIUM 100 MG CAPSULE PO SCH (22:32)
[2017-06-15] MEDS: ASPIRIN 81 MG TAB.CHEW PO SCH (22:32)
[2017-06-15] MEDS: SENNOSIDES 8.6 MG TABLET PO SCH (22:32)
[2017-06-15] MEDS: CLOTRIMAZOLE/BETAMETH 1%-0.05% TOPICAL CREAM 15GM TUBE. TP SCH (22:33)
[2017-06-16 04:00] VITALS: BP 111/66
[2017-06-16 06:23] LABS: BASO % 1 % (0-3); EOS # 0.5 x10^3/uL (0.0-0.7); EOS % 10 % (0-3); HEMOGLOBIN 10.5 g/dL (12.0-15.5); LYMPH # 1.1 x10^3/uL (1.0-4.8); LYMPH % 21 % (24-48); MEAN CORPUSCULAR HEMOGLOBIN 25 pg (25-35); MEAN CORPUSCULAR HGB CONC 32 g/dL (31-37); MEAN CORPUSCULAR VOLUME 79 fL (79-100); MONO # 0.6 x10^3/uL (0.0-1.1); MONO % 12 % (0-9); NEUT # 3.1 x10^3uL (1.8-7.7); NEUT % 57 % (31-73); PLATELET COUNT 189 x10^3/uL (140-400); RED BLOOD COUNT 4.18 x10^6/uL (3.50-5.40); RED CELL DISTRIBUTION WIDTH 16.5 % (11.5-14.5); WHITE BLOOD COUNT 5.4 x10^3/uL (4.0-11.0)
[2017-06-16 06:44] LABS: ALBUMIN 2.3 g/dL (3.4-5.0); ALBUMIN/GLOBULIN RATIO 0.6 (1.0-1.7); CALCIUM 9.6 mg/dL (8.5-10.1); CREATININE 0.9 mg/dL (0.6-1.0); GFR 59.1; MAGNESIUM 1.4 mg/dL (1.8-2.4); TOTAL BILIRUBIN 0.3 mg/dL (0.2-1.0)
--- NOTE | 2017-06-16 07:23 | PN ---
DATE: 06/15/2017 CURRENT PROBLEMS: 1. Atrial fibrillation with slow ventricular response. 2. Acute on chronic heart failure. 3. Hypertension. 4. Anasarca. 5. Fluid overload. 6. Fall risk. 7. Chronic venous insufficiency of lower extremities. 8. Elevated BNP with vascular congestion. 9. Normochromic normocytic anemia. 10. Elevated troponin secondary to illness. 11. Hypomagnesemia. 12. Urinary tract infection with growing out gram-negative rods, greater than 100,000. SUBJECTIVE: She is doing better. She is having excellent diuresis with IV Lasix. We are waiting for Cardiology to see her today. She is much more alert today as well. Intake 1340, output 4150 with a deficit of -2810. Weight is 227. I think her initial weight was 240; however, it is not recorded. I am awaiting the weight from . OBJECTIVE: VITAL SIGNS: Blood pressure 121/61, pulse 70, respirations 20, pulse ox is 98% on 2 liters. GENERAL: She is much more alert, color is good. HEENT: Her tongue is slightly dry. NECK: Supple. LUNGS: Clear. CARDIOVASCULAR: Irregular rhythm and rate. ABDOMEN: Soft, nontender. The patient has a large BM today. EXTREMITIES: With decreased edema in the arms and the legs. PLAN: Add ceftriaxone for UTI. She is now on just p.o. Lasix. MILAN REED DO DR: ASAD/lucy JOB#: [id number] / [id number]
[2017-06-16 08:20] VITALS: BP 113/54
[2017-06-16] MEDS: APIXABAN 2.5 MG TABLET PO SCH (08:52)
[2017-06-16] MEDS: MAGNESIUM OXIDE 400 MG TABLET PO SCH (08:52)
[2017-06-16] MEDS: CALCIUM CARBONATE 500 MG TABLET PO SCH (08:52)
[2017-06-16] MEDS: GLUCOSAMINE/CHOND 500/400MG CAPSULE PO SCH (08:52)
[2017-06-16] MEDS: amLODIPine BESYLATE 10 MG TABLET PO SCH (08:52)
[2017-06-16] MEDS: OXYBUTYNIN CHLORIDE 5 MG TABLET PO SCH (08:52)
[2017-06-16] MEDS: MULTIVITAMIN I-VITE TABLET. PO SCH (08:52)
[2017-06-16] MEDS: FUROSEMIDE 40 MG TABLET PO SCH (08:52)
[2017-06-16] MEDS: ACETAMINOPHEN 500 MG TABLET PO SCH (08:53)
--- NOTE | 2017-06-16 09:14 | PDOC ---
PROGRESS NOTES Assessment 1. Afib with slow ventricular response. - rate improved off beta janelle. On Eliquis for stroke prophylaxis. 2. acute on chronic diastolic HF - improving, changed to oral lasix. 3. Elevated troponin due to demand mediated ischemia - continue medical mgmt 4. Mild HTN - controlled 5. UTI/cellulitis - abx per PCP Continue conservative management. Transfer plans back to [facility] later today. Problems: Subjective She reports feeling a little better. No chest pain, breathing easy, remains swollen. Objective Vital Signs Date Time Temp Pulse Resp B/P (MAP) Pulse Ox O2 Delivery O2 Flow Rate FiO2 06/16/17 08:52 68 113/54 06/16/17 08:20 18 94 Nasal Cannula 2.0 06/15/17 00:01 98.7 Intake and Output 06/16/17 07:00 Intake Total 520 ml Output Total 3650 ml Balance -3130 ml Intake Oral 520 ml Output Urine Total 3650 ml Abdomen: Normal bowel sounds, Soft Heart: Other (irregular rate and rhythm) Extremities: Other (+ anasarca, improving) General: Alert, Oriented X3, Cooperative, No acute distress Lungs: Other (decreased bases) Neuro: Normal speech Psych/Mental Status: Mental status NL, Mood NL Review of Relevant I have reviewed the following items janet (where applicable) has been applied. Labs Laboratory Tests Test 06/15/17 05:25 06/16/17 05:50 White Blood Count 5.8 x10^3/uL (4.0-11.0) 5.4 x10^3/uL (4.0-11.0) Red Blood Count 4.15 x10^6/uL (3.50-5.40) 4.18 x10^6/uL (3.50-5.40) Hemoglobin 10.2 g/dL (12.0-15.5) 10.5 g/dL (12.0-15.5) Hematocrit 33.3 % (36.0-47.0) 33.0 % (36.0-47.0) Mean Corpuscular Volume 80 fL (79-100) 79 fL (79-100) Mean Corpuscular Hemoglobin 25 pg (25-35) 25 pg (25-35) Mean Corpuscular Hemoglobin Concent 31 g/dL (31-37) 32 g/dL (31-37) Red Cell Distribution Width 16.7 % (11.5-14.5) 16.5 % (11.5-14.5) Platelet Count 191 x10^3/uL (140-400) 189 x10^3/uL (140-400) Neutrophils (%) (Auto) 62 % (31-73) 57 % (31-73) Lymphocytes (%) (Auto) 17 % (24-48) 21 % (24-48) Monocytes (%) (Auto) 12 % (0-9) 12 % (0-9) Eosinophils (%) (Auto) 8 % (0-3) 10 % (0-3) Basophils (%) (Auto) 1 % (0-3) 1 % (0-3) Neutrophils # (Auto) 3.6 x10^3uL (1.8-7.7) 3.1 x10^3uL (1.8-7.7) Lymphocytes # (Auto) 1.0 x10^3/uL (1.0-4.8) 1.1 x10^3/uL (1.0-4.8) Monocytes # (Auto) 0.7 x10^3/uL (0.0-1.1) 0.6 x10^3/uL (0.0-1.1) Eosinophils # (Auto) 0.4 x10^3/uL (0.0-0.7) 0.5 x10^3/uL (0.0-0.7) Basophils # (Auto) 0.0 x10^3/uL (0.0-0.2) 0.0 x10^3/uL (0.0-0.2) Sodium Level 142 mmol/L (136-145) 144 mmol/L (136-145) Potassium Level 4.3 mmol/L (3.5-5.1) 4.0 mmol/L (3.5-5.1) Chloride Level 105 mmol/L (98-107) 103 mmol/L (98-107) Carbon Dioxide Level 31 mmol/L (21-32) 37 mmol/L (21-32) Anion Gap 6 (6-14) 4 (6-14) Blood Urea Nitrogen 44 mg/dL (7-20) 34 mg/dL (7-20) Creatinine 0.9 mg/dL (0.6-1.0) 0.9 mg/dL (0.6-1.0) Estimated GFR (Cockcroft-Gault) 59.1 59.1 BUN/Creatinine Ratio 49 (6-20) 38 (6-20) Glucose Level 106 mg/dL (70-99) 104 mg/dL (70-99) Calcium Level 10.1 mg/dL (8.5-10.1) 9.6 mg/dL (8.5-10.1) Magnesium Level 1.6 mg/dL (1.8-2.4) 1.4 mg/dL (1.8-2.4) Total Bilirubin 0.4 mg/dL (0.2-1.0) 0.3 mg/dL (0.2-1.0) Aspartate Amino Transf (AST/SGOT) 18 U/L (15-37) 15 U/L (15-37) Alanine Aminotransferase (ALT/SGPT) 15 U/L (14-59) 15 U/L (14-59) Alkaline Phosphatase 103 U/L (46-116) 95 U/L (46-116) Total Protein 6.1 g/dL (6.4-8.2) 6.0 g/dL (6.4-8.2) Albumin 2.5 g/dL (3.4-5.0) 2.3 g/dL (3.4-5.0) Albumin/Globulin Ratio 0.7 (1.0-1.7) 0.6 (1.0-1.7) Microbiology 06/13/17 Urine Culture - Final, Complete 06/13/17 Urine Culture Result 1 (FABY) - Final, Complete 06/13/17 Antimicrobic Susceptibility - Final, Complete Medications Current Medications Aspirin (Children'S Aspirin) 81 mg STK-MED ONCE .ROUTE ; Start 06/13/17 at 11: 07; Stop 06/13/17 at 11:08; Status DC Aspirin (Children'S Aspirin) 324 mg 1X ONCE PO ; Start 06/13/17 at 11:30; Stop 06/13/17 at 11:31; Status DC Ondansetron HCl (Zofran) 4 mg PRN Q4HRS PRN IV NAUSEA/VOMITING; Start at 11:30; Stop 06/14/17 at 11:29; Status DC Morphine Sulfate (Morphine 2mg Syringe) 2 mg PRN Q2HR PRN IV PAIN; Start 06/13 at 11:30; Stop 06/14/17 at 11:29; Status DC Acetaminophen (Tylenol) 650 mg PRN Q4HRS PRN PO FEVER; Start 06/13/17 at 11:30 ; Stop 06/14/17 at 11:29; Status DC Furosemide (Lasix) 80 mg 1X ONCE IVP Last administered on 06/13/17 12:08; Start 06/13/17 at 12:10; Stop 06/13/17 at 12:11; Status DC Amlodipine Besylate (Norvasc) 10 mg DAILY PO Last administered on 06/16/17 08 :52; Start 06/13/17 at 14:00 Furosemide (Lasix) 40 mg DAILY PO ; Start 06/13/17 at 14:00; Stop 06/13/17 at 14:10; Status DC Furosemide (Lasix) 40 mg DAILY07 IVP Last administered on 06/15/17 06:19; Start 06/14/17 at 07:00; Stop 06/15/17 at 15:34; Status DC Acetaminophen (Tylenol) 1,000 mg TID PO Last administered on 06/15/17 22:32; Start 06/13/17 at 21:00 Aspirin (Children'S Aspirin) 81 mg QHS PO Last administered on 06/15/17 22:32 ; Start 06/14/17 at 21:00 Calcium Carbonate/ Glycine (Oscal) 500 mg TID PO Last administered on 08:52; Start 06/13/17 at 21:00 Betamethasone/ Clotrimazole (Lotrisone) 1 fred QHS TP Last administered on 06/15 22:33; Start 06/13/17 at 21:00 Docusate Sodium (Colace) 200 mg QHS PO Last administered on 06/15/17 22:32; Start 06/13/17 at 21:00 Sennosides (Senna) 8.6 mg QHS PO Last administered on 06/15/17 22:32; Start 06/13/17 at 21:00 Triamcinolone Acetonide (Aristocort) 1 fred PRN DAILY PRN TP PRURITUS; Start at 17:00 Non-Formulary Medication 50,000 unit QMONTHLY PO ; Start 06/13/17 at 17:00; Stop 06/13/17 at 17:15; Status DC Glucosamine/ Chondroitin (Glucosamine-Chondroitin 500/400mg) 1 cap BID PO Last administered on 06/16/17 08:52; Start 06/13/17 at 21:00 Multi-Ingredient Ointment (Analgesic [place]) 1 fred PRN QID PRN TP PAIN; Start at 17:15 Multivitamins/ Minerals (I-Mirian) 1 tab DAILY PO Last administered on 08:52; Start 06/14/17 at 09:00 Psyllium Hydrophilic Mucilloid (Metamucil) 1 pkt PRN DAILY PRN PO CONSTIPATION ; Start 06/14/17 at 09:00 Famotidine (Pepcid) 20 mg QHS PO Last administered on 06/15/17 22:32; Start 06/13/17 at 21:00 Oxybutynin Chloride (Ditropan) 5 mg [id number] PO Last administered on 06/16/17 08:52; Start 06/13/17 at 21:00 Vitamin D (Vitamin D3) 50,000 unit QMONTH PO ; Start 07/01/17 at 09:00 Magnesium Oxide (Magnesium Oxide) 400 mg DAILY PO Last administered on 08:52; Start 06/14/17 at 09:00 Enoxaparin Sodium (Lovenox) 30 mg Q24H SQ ; Start 06/14/17 at 10:00; Status UNV Enoxaparin Sodium (Lovenox) 40 mg Q24H SQ Last administered on 06/15/17 08:42 ; Start 06/14/17 at 10:30; Stop 06/15/17 at 15:34; Status DC Ceftriaxone Sodium 1 gm/ Dextrose 50 ml @ 100 mls/hr Q24H IV Last administered on 06/15/17 08:41; Start 06/15/17 at 08:00 Apixaban (Eliquis) 2.5 mg BID PO Last administered on 06/16/17 08:52; Start 06/15/17 at 21:00 Furosemide (Lasix) 40 mg BID PO Last administered on 06/16/17t 08:52; Start 06/15/17 at 21:00 Active Scripts Active Reported Senna (Sennosides) 8.6 Mg Tablet 8.6 Mg PO QHS Lotrisone Cream (Clotrimazole/Betamethasone Dip) 15 Gm Cream..g. 1 Fred TP QHS Mucinex (Guaifenesin) 600 Mg Tablet.er 600 Mg PO BID Zantac (Ranitidine Hcl) 150 Mg Tablet 150 Mg PO QHS Tramadol Hcl (Tramadol HCl) 50 Mg Tablet 50 Mg PO QID PRN Coreg (Carvedilol) 3.125 Mg Tablet 3.125 Mg PO BIDWMEALS Vitamin D2 (Ergocalciferol (Vitamin D2)) 50,000 Unit Capsule 50,000 Unit PO QMONTHLY Vitamin D3 (Cholecalciferol (Vitamin D3)) 5,000 Unit Tablet 5,000 Unit PO Triamcinolone Acetonide 15 Gm Cream..g. 1 Fred TP PRN PRN Colace (Docusate Sodium) 100 Mg Capsule 200 Mg PO QHS Aspirin 81 Mg Tab.chew 81 Mg PO QHS Glucosamine-Chondroitin Cap (Glucosa [place] 2KCL/Chondroitin [place]eves) 1 Each Capsule 1 Tab PO BID Acetaminophen 500 Mg Tablet 1,000 Mg PO TID Amlodipine Besylate 5 Mg Tablet 5 Mg PO DAILY Lasix (Furosemide) 40 Mg Tablet 40 Mg PO DAILY Detrol La (Tolterodine Tartrate) 4 Mg Cap.er.24h 4 Mg PO DAILY Metamucil Fiber Singles Packet (Psyllium Husk/Aspartame) 3.4 Gm Powd.pack 3.4 Gm PO PRN DAILY PRN Calcium Carbonate 500 Mg Tablet 500 Mg PO TID Centrum Silver Tablet (Multivits-Min/Fa/Lycopene/Lut) 1 Each Tablet 1 Tab PO DAILY Icy Hot (Menthol) 1 Each Adh..patch 1 Fred TP PRN PRN Vitals/I & O Vital Sign - Last 24 Hours 06/15/17 06/15/17 06/15/17 06/15/17 10:06 15:52 20:00 20:00 Pulse 87 51 56 Resp 20 B/P (MAP) 126/86 (99) 94/43 (60) 108/52 (70) Pulse Ox 98 O2 Delivery Nasal Cannula Nasal Cannula O2 Flow Rate 2.0 2.0 06/15/17 06/16/17 06/16/17 06/16/17 22:09 04:00 08:00 08:20 Pulse 64 58 68 Resp 24 18 18 B/P (MAP) 111/62 (78) 111/66 (81) 113/54 (73) Pulse Ox 98 99 94 O2 Delivery Nasal Cannula Nasal Cannula Nasal Cannula Nasal Cannula O2 Flow Rate 2.0 2.0 2.0 2.0 06/16/17 08:52 Pulse 68 B/P (MAP) 113/54 Intake and Output 06/15/17 06/15/17 06/16/17 15:00 23:00 07:00 Intake Total 120 ml 160 ml 240 ml Output Total 700 ml 1100 ml 1850 ml Balance -580 ml -940 ml -1610 ml EFRAÍN CORONA C[employer] REGISTER REPAIRER Jun 16, 2017 09:14
[2017-06-16 09:21] VITALS: BP 142/86
--- NOTE | 2017-06-16 12:50 | PDOC3 ---
Discharge Summary Visit Information Date of Admission: Jun 13, 2017 Date of Discharge: Jun 16, 2017 Final Diagnosis OBLEMS: 1. Atrial fibrillation with slow ventricular response. 2. Acute on chronic diastolic heart failure. 3. Hypertension. 4. Anasarca. 5. Fluid overload. 6. Fall risk. 7. Chronic venous insufficiency of lower extremities. 8. Elevated BNP with vascular congestion. 9. Normochromic normocytic anemia. 10. Elevated troponin secondary to illness. 11. Hypomagnesemia. 12. Urinary tract infection -e.coli, greater than 100,000. Problems: Brief Hospital Course Allergies Allergies Coded Allergies Type Severity Reaction Last Updated Verified codeine Allergy Intermediate 06/14/17 Yes I S O L A T I O N *CONTACT* Allergy Unknown 06/14/17 Yes Vital Signs Vital Signs Date Time Temp Pulse Resp B/P (MAP) Pulse Ox O2 Delivery O2 Flow Rate FiO2 06/16/17 09:21 76 18 142/86 (104) 96 Nasal Cannula 2.0 06/15/17 00:01 98.7 Lab Results Laboratory Tests Test 06/15/17 05:25 06/16/17 05:50 White Blood Count 5.8 x10^3/uL (4.0-11.0) 5.4 x10^3/uL (4.0-11.0) Red Blood Count 4.15 x10^6/uL (3.50-5.40) 4.18 x10^6/uL (3.50-5.40) Hemoglobin 10.2 g/dL (12.0-15.5) 10.5 g/dL (12.0-15.5) Hematocrit 33.3 % (36.0-47.0) 33.0 % (36.0-47.0) Mean Corpuscular Volume 80 fL (79-100) 79 fL (79-100) Mean Corpuscular Hemoglobin 25 pg (25-35) 25 pg (25-35) Mean Corpuscular Hemoglobin Concent 31 g/dL (31-37) 32 g/dL (31-37) Red Cell Distribution Width 16.7 % (11.5-14.5) 16.5 % (11.5-14.5) Platelet Count 191 x10^3/uL (140-400) 189 x10^3/uL (140-400) Neutrophils (%) (Auto) 62 % (31-73) 57 % (31-73) Lymphocytes (%) (Auto) 17 % (24-48) 21 % (24-48) Monocytes (%) (Auto) 12 % (0-9) 12 % (0-9) Eosinophils (%) (Auto) 8 % (0-3) 10 % (0-3) Basophils (%) (Auto) 1 % (0-3) 1 % (0-3) Neutrophils # (Auto) 3.6 x10^3uL (1.8-7.7) 3.1 x10^3uL (1.8-7.7) Lymphocytes # (Auto) 1.0 x10^3/uL (1.0-4.8) 1.1 x10^3/uL (1.0-4.8) Monocytes # (Auto) 0.7 x10^3/uL (0.0-1.1) 0.6 x10^3/uL (0.0-1.1) Eosinophils # (Auto) 0.4 x10^3/uL (0.0-0.7) 0.5 x10^3/uL (0.0-0.7) Basophils # (Auto) 0.0 x10^3/uL (0.0-0.2) 0.0 x10^3/uL (0.0-0.2) Sodium Level 142 mmol/L (136-145) 144 mmol/L (136-145) Potassium Level 4.3 mmol/L (3.5-5.1) 4.0 mmol/L (3.5-5.1) Chloride Level 105 mmol/L (98-107) 103 mmol/L (98-107) Carbon Dioxide Level 31 mmol/L (21-32) 37 mmol/L (21-32) Anion Gap 6 (6-14) 4 (6-14) Blood Urea Nitrogen 44 mg/dL (7-20) 34 mg/dL (7-20) Creatinine 0.9 mg/dL (0.6-1.0) 0.9 mg/dL (0.6-1.0) Estimated GFR (Cockcroft-Gault) 59.1 59.1 BUN/Creatinine Ratio 49 (6-20) 38 (6-20) Glucose Level 106 mg/dL (70-99) 104 mg/dL (70-99) Calcium Level 10.1 mg/dL (8.5-10.1) 9.6 mg/dL (8.5-10.1) Magnesium Level 1.6 mg/dL (1.8-2.4) 1.4 mg/dL (1.8-2.4) Total Bilirubin 0.4 mg/dL (0.2-1.0) 0.3 mg/dL (0.2-1.0) Aspartate Amino Transf (AST/SGOT) 18 U/L (15-37) 15 U/L (15-37) Alanine Aminotransferase (ALT/SGPT) 15 U/L (14-59) 15 U/L (14-59) Alkaline Phosphatase 103 U/L (46-116) 95 U/L (46-116) Total Protein 6.1 g/dL (6.4-8.2) 6.0 g/dL (6.4-8.2) Albumin 2.5 g/dL (3.4-5.0) 2.3 g/dL (3.4-5.0) Albumin/Globulin Ratio 0.7 (1.0-1.7) 0.6 (1.0-1.7) Brief Hospital Course Ms. 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 The shelter also noticed some heart rate in the 40s. The patient herself is not sure why she had to be admitted. She had tremendous diuresis with iv lasix and lost about 10 pounds, Her edema markedly decrealed in her legs and arms and she was feeling much better on the day of discharged. she was taken off her coreg due to bradycardia. cardiology assisted with her a fib with slow response and chf. She was discharged back to [facility] and her medications were reconciled. Discharged to Care Home. She also had a UTI and was treated with Rocephin and sent home on macrodantin. Discharge Information Condition at Discharge: Improved Disposition/Orders: D/C to Another Facility Dischare Medications Current Medications Aspirin (Children'S Aspirin) 81 mg STK-MED ONCE .ROUTE ; Start 06/13/17 at 11: 07; Stop 06/13/17 at 11:08; Status DC Aspirin (Children'S Aspirin) 324 mg 1X ONCE PO ; Start 06/13/17 at 11:30; Stop 06/13/17 at 11:31; Status DC Ondansetron HCl (Zofran) 4 mg PRN Q4HRS PRN IV NAUSEA/VOMITING; Start at 11:30; Stop 06/14/17 at 11:29; Status DC Morphine Sulfate (Morphine 2mg Syringe) 2 mg PRN Q2HR PRN IV PAIN; Start 06/13 at 11:30; Stop 06/14/17 at 11:29; Status DC Acetaminophen (Tylenol) 650 mg PRN Q4HRS PRN PO FEVER; Start 06/13/17 at 11:30 ; Stop 06/14/17 at 11:29; Status DC Furosemide (Lasix) 80 mg 1X ONCE IVP Last administered on 06/13/17 12:08; Start 06/13/17 at 12:10; Stop 06/13/17 at 12:11; Status DC Amlodipine Besylate (Norvasc) 10 mg DAILY PO Last administered on 06/16/17 08 :52; Start 06/13/17 at 14:00; Stop 06/16/17 at 11:05; Status DC Furosemide (Lasix) 40 mg DAILY PO ; Start 06/13/17 at 14:00; Stop 06/13/17 at 14:10; Status DC Furosemide (Lasix) 40 mg DAILY07 IVP Last administered on 06/15/17 06:19; Start 06/14/17 at 07:00; Stop 06/15/17 at 15:34; Status DC Acetaminophen (Tylenol) 1,000 mg TID PO Last administered on 06/15/17 22:32; Start 06/13/17 at 21:00; Stop 06/16/17 at 11:05; Status DC Aspirin (Children'S Aspirin) 81 mg QHS PO Last administered on 06/15/17 22:32 ; Start 06/14/17 at 21:00; Stop 06/16/17 at 11:05; Status DC Calcium Carbonate/ Glycine (Oscal) 500 mg TID PO Last administered on 08:52; Start 06/13/17 at 21:00; Stop 06/16/17 at 11:05; Status DC Betamethasone/ Clotrimazole (Lotrisone) 1 fred QHS TP Last administered on 06/15 22:33; Start 06/13/17 at 21:00; Stop 06/16/17 at 11:05; Status DC Docusate Sodium (Colace) 200 mg QHS PO Last administered on 06/15/17 22:32; Start 06/13/17 at 21:00; Stop 06/16/17 at 11:05; Status DC Sennosides (Senna) 8.6 mg QHS PO Last administered on 06/15/17 22:32; Start 06/13/17 at 21:00; Stop 06/16/17 at 11:05; Status DC Triamcinolone Acetonide (Aristocort) 1 fred PRN DAILY PRN TP PRURITUS; Start at 17:00; Stop 06/16/17 at 11:05; Status DC Non-Formulary Medication 50,000 unit QMONTHLY PO ; Start 06/13/17 at 17:00; Stop 06/13/17 at 17:15; Status DC Glucosamine/ Chondroitin (Glucosamine-Chondroitin 500/400mg) 1 cap BID PO Last administered on 06/16/17 08:52; Start 06/13/17 at 21:00; Stop 06/16/17 at 11 :05; Status DC Multi-Ingredient Ointment (Analgesic [place]) 1 fred PRN QID PRN TP PAIN; Start at 17:15; Stop 06/16/17 at 11:05; Status DC Multivitamins/ Minerals (I-Mirian) 1 tab DAILY PO Last administered on 08:52; Start 06/14/17 at 09:00; Stop 06/16/17 at 11:05; Status DC Psyllium Hydrophilic Mucilloid (Metamucil) 1 pkt PRN DAILY PRN PO CONSTIPATION ; Start 06/14/17 at 09:00; Stop 06/16/17 at 11:05; Status DC Famotidine (Pepcid) 20 mg QHS PO Last administered on 06/15/17 22:32; Start 06/13/17 at 21:00; Stop 06/16/17 at 11:05; Status DC Oxybutynin Chloride (Ditropan) 5 mg [id number] PO Last administered on 06/16/17 08:52; Start 06/13/17 at 21:00; Stop 06/16/17 at 11:05; Status DC Vitamin D (Vitamin D3) 50,000 unit QMONTH PO ; Start 07/01/17 at 09:00; Stop at 09:00; Status DC Magnesium Oxide (Magnesium Oxide) 400 mg DAILY PO Last administered on 08:52; Start 06/14/17 at 09:00; Stop 06/16/17 at 11:05; Status DC Enoxaparin Sodium (Lovenox) 30 mg Q24H SQ ; Start 06/14/17 at 10:00; Status UNV Enoxaparin Sodium (Lovenox) 40 mg Q24H SQ Last administered on 06/15/17 08:42 ; Start 06/14/17 at 10:30; Stop 06/15/17 at 15:34; Status DC Ceftriaxone Sodium 1 gm/ Dextrose 50 ml @ 100 mls/hr Q24H IV Last administered on 06/15/17 08:41; Start 06/15/17 at 08:00; Stop 06/16/17 at 11 :05; Status DC Apixaban (Eliquis) 2.5 mg BID PO Last administered on 06/16/17 08:52; Start 06/15/17 at 21:00; Stop 06/16/17 at 11:05; Status DC Furosemide (Lasix) 40 mg BID PO Last administered on 06/16/17 08:52; Start 06/15/17 at 21:00; Stop 06/16/17 at 11:05; Status DC Active Scripts Active Reported Senna (Sennosides) 8.6 Mg Tablet 8.6 Mg PO QHS Lotrisone Cream (Clotrimazole/Betamethasone Dip) 15 Gm Cream..g. 1 Fred TP QHS Mucinex (Guaifenesin) 600 Mg Tablet.er 600 Mg PO BID Zantac (Ranitidine Hcl) 150 Mg Tablet 150 Mg PO QHS Tramadol Hcl (Tramadol HCl) 50 Mg Tablet 50 Mg PO QID PRN Coreg (Carvedilol) 3.125 Mg Tablet 3.125 Mg PO BIDWMEALS Vitamin D2 (Ergocalciferol (Vitamin D2)) 50,000 Unit Capsule 50,000 Unit PO QMONTHLY Vitamin D3 (Cholecalciferol (Vitamin D3)) 5,000 Unit Tablet 5,000 Unit PO Triamcinolone Acetonide 15 Gm Cream..g. 1 Fred TP PRN PRN Colace (Docusate Sodium) 100 Mg Capsule 200 Mg PO QHS Aspirin 81 Mg Tab.chew 81 Mg PO QHS Glucosamine-Chondroitin Cap (Glucosa [place] 2KCL/Chondroitin [place]eves) 1 Each Capsule 1 Tab PO BID Acetaminophen 500 Mg Tablet 1,000 Mg PO TID Amlodipine Besylate 5 Mg Tablet 5 Mg PO DAILY Lasix (Furosemide) 40 Mg Tablet 40 Mg PO DAILY Detrol La (Tolterodine Tartrate) 4 Mg Cap.er.24h 4 Mg PO DAILY Metamucil Fiber Singles Packet (Psyllium Husk/Aspartame) 3.4 Gm Powd.pack 3.4 Gm PO PRN DAILY PRN Calcium Carbonate 500 Mg Tablet 500 Mg PO TID Centrum Silver Tablet (Multivits-Min/Fa/Lycopene/Lut) 1 Each Tablet 1 Tab PO DAILY Icy Hot (Menthol) 1 Each Adh..patch 1 Fred TP PRN PRN Patient Instructions Patient Instuctions discharge to [facility]. MILAN REED DO Jun 16, 2017 12:50
[2017-07-01] MEDS ORDERED: CHOLECALCIFEROL (VITAMIN D3) 50,000 UNIT CAPSULE PO SCH (09:00)
== END 2017-06-16 11:05 | disposition home or self-care (01) | DRG 291 ==
LOC: ER 10:05 → ICU 11:20 → 1 SOUTH 06-16 07:35 → ICU 06-16 08:08
PROVIDERS: ADMIT Family Medicine; ATTEND Family Medicine
DX: I11.0 Hypertensive heart disease with heart failure (principal); E43 Unspecified severe protein-calorie malnutrition; I48.91 Unspecified atrial fibrillation; N39.0 Urinary tract infection, site not specified; D63.8 Anemia in other chronic diseases classified elsewhere; Z79.01 Long term (current) use of anticoagulants; L03.90 Cellulitis, unspecified; I50.33 Acute on chronic diastolic (congestive) heart failure; E83.42 Hypomagnesemia; I87.2 Venous insufficiency (chronic) (peripheral); K59.00 Constipation, unspecified; M19.90 Unspecified osteoarthritis, unspecified site; B96.20 Unspecified Escherichia coli [E. coli] as the cause of diseases classified elsewhere; L29.9 Pruritus, unspecified; Z66 Do not resuscitate; Z79.82 Long term (current) use of aspirin; Z79.899 Other long term (current) drug therapy; Z91.81 History of falling; Z88.8 Allergy status to other drugs, medicaments and biological substances
CPT/HCPCS: 36415; 51702; 71010; 80053; 81001; 83735; 83880; 84484; 85025; 87086; 87186; 87641; 93005; 93306; J0696; J1650; J1940; 99291-25

== ENCOUNTER → 2017-06-20 | Outpatient (CLI) | payer MEDICARE, OTHER ==
[2017-06-16 09:21] VITALS: BP 142/86
[~2017-06-20] MED LIST: ACET500T68 PO; AMLO5TAB2 PO; ASPI-630 PO; CALC500T PO; CARV3.12 PO; CHOL500016 PO; CLOT15CR3 TP; DOCU-109 PO; ERGO500027 PO; FURO-68 PO; GLUC1CAP39 PO; GUAI600T47 PO; MENT1ADH39 TP; MULT-658 PO; PSYL3.4P PO; RANI150T6 PO; SENN-79 PO; TOLT4CAP PO; TRAM50TA PO; TRIA15CR50 TP
[2017-06-20 11:45] LABS: BASO % 1 % (0-3); EOS # 0.6 x10^3/uL (0.0-0.7); EOS % 9 % (0-3); HEMATOCRIT 36.6 % (36.0-47.0); HEMOGLOBIN 11.3 g/dL (12.0-15.5); LYMPH # 1.1 x10^3/uL (1.0-4.8); LYMPH % 18 % (24-48); MEAN CORPUSCULAR HEMOGLOBIN 25 pg (25-35); MEAN CORPUSCULAR HGB CONC 31 g/dL (31-37); MEAN CORPUSCULAR VOLUME 80 fL (79-100); MONO # 0.6 x10^3/uL (0.0-1.1); MONO % 10 % (0-9); NEUT # 3.8 x10^3uL (1.8-7.7); NEUT % 62 % (31-73); PLATELET COUNT 185 x10^3/uL (140-400); RED CELL DISTRIBUTION WIDTH 16.4 % (11.5-14.5); WHITE BLOOD COUNT 6.2 x10^3/uL (4.0-11.0)
[2017-06-20 11:51] LABS: ALBUMIN 2.8 g/dL (3.4-5.0); ALBUMIN/GLOBULIN RATIO 0.6 (1.0-1.7); CALCIUM 10.2 mg/dL (8.5-10.1); CREATININE 1.2 mg/dL (0.6-1.0); GFR 42.4; POTASSIUM 3.9 mmol/L (3.5-5.1); TOTAL BILIRUBIN 0.4 mg/dL (0.2-1.0); TOTAL PROTEIN 7.2 g/dL (6.4-8.2)
[2017-06-20 11:56] LABS: MAGNESIUM 1.7 mg/dL (1.8-2.4)
== END | disposition home or self-care (01) ==
LOC: SPEC 11:22
PROVIDERS: ATTEND Family Medicine
DX: D50.0 Iron deficiency anemia secondary to blood loss (chronic) (principal); I50.9 Heart failure, unspecified; E87.5 Hyperkalemia
CPT/HCPCS: 36415; 80053; 83735; 85025

== ENCOUNTER → 2017-06-27 | Outpatient (CLI) | payer MEDICARE, OTHER ==
[2017-06-16 09:21] VITALS: BP 142/86
[2017-06-27 12:07] LABS: CALCIUM 10.1 mg/dL (8.5-10.1); CREATININE 1.4 mg/dL (0.6-1.0); GFR 35.5
[2017-06-27 12:08] LABS: POTASSIUM 4.1 mmol/L (3.5-5.1)
== END | disposition home or self-care (01) ==
LOC: SPEC 10:16
PROVIDERS: ATTEND Internal Medicine
DX: I11.0 Hypertensive heart disease with heart failure (principal); I50.9 Heart failure, unspecified
CPT/HCPCS: 36415; 80048

== ENCOUNTER → 2017-08-12 | Outpatient (CLI) | payer MEDICARE, OTHER ==
[2017-08-12 10:19] LABS: ALBUMIN 3.4 g/dL (3.4-5.0); ALBUMIN/GLOBULIN RATIO 0.9 (1.0-1.7); CALCIUM 9.4 mg/dL (8.5-10.1); CREATININE 1.5 mg/dL (0.6-1.0); GFR 32.8; MAGNESIUM 2.4 mg/dL (1.8-2.4); POTASSIUM 4.7 mmol/L (3.5-5.1); TOTAL BILIRUBIN 0.3 mg/dL (0.2-1.0); TOTAL PROTEIN 7.1 g/dL (6.4-8.2)
== END | disposition home or self-care (01) ==
LOC: SPEC 10:01
PROVIDERS: ATTEND Internal Medicine
DX: I11.0 Hypertensive heart disease with heart failure (principal); I50.9 Heart failure, unspecified; E87.5 Hyperkalemia; E55.9 Vitamin D deficiency, unspecified
CPT/HCPCS: 36415; 80053; 82306; 83735

== ENCOUNTER → 2017-08-30 | Outpatient (CLI) | payer MEDICARE, OTHER ==
--- NOTE | 2017-08-30 15:46 | RAD ---
Two-view study of the right tibia and fibula History: Wound on leg. Exposed bone. 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 No acute fracture or osteolytic process is seen. Extensive soft tissue calcification is seen which may be noted with chronic venous insufficiency and soft tissue edema. IMPRESSION: No osteomyelitis is seen radiographically.
== END | disposition home or self-care (01) ==
LOC: DXRAD 14:01
PROVIDERS: ATTEND Internal Medicine
DX: S81.001D Unspecified open wound, right knee, subsequent encounter (principal); X58.XXXD Exposure to other specified factors, subsequent encounter
CPT/HCPCS: 73590

== ENCOUNTER → 2017-09-14 | Outpatient (CLI) | payer MEDICARE, OTHER ==
[2017-09-14 13:08] LABS: CALCIUM 9.4 mg/dL (8.5-10.1); CREATININE 1.5 mg/dL (0.6-1.0); GFR 32.8; POTASSIUM 4.8 mmol/L (3.5-5.1)
== END | disposition home or self-care (01) ==
LOC: SPEC 11:50
PROVIDERS: ATTEND Internal Medicine
DX: E87.5 Hyperkalemia (principal)
CPT/HCPCS: 36415; 80048